=== PATIENT | female | born 1965 | race Caucasian/White ===

== ENCOUNTER 2022-07-23 18:06 | Emergency (ER) | payer BC ==
--- NOTE | 2022-07-23 19:39 | XR ---
EXAMINATION TYPE: XR KUB DATE OF EXAM: 07/23/2022 COMPARISON: NONE HISTORY: Abdominal pain TECHNIQUE: 2 views upright FINDINGS: There is no sign of intestinal obstruction or pneumoperitoneum. Fecal pattern is normal. No evidence of a mass. Lung bases are clear. IMPRESSION: Nonacute abdomen.
[2022-07-23 19:47] LABS: Basophils % (A) 0 %; Eosinophils # (A) 0.1 k/uL (0-0.7); Eosinophils % (A) 1 %; HCT 42.1 % (34.0-46.0); HGB 13.8 gm/dL (11.4-16.0); Lymphocytes # (A) 1.3 k/uL (1.0-4.8); Lymphocytes % (A) 12 %; MCH 30.4 pg (25.0-35.0); MCHC 32.8 g/dL (31.0-37.0); MCV 92.6 fL (80.0-100.0); Mean Platelet Volume 8.5; Monocytes # (A) 0.4 k/uL (0-1.0); Monocytes % (A) 4 %; Neutrophils % (A) 82 %; Platelet Count 296 k/uL (150-450); RBC 4.54 m/uL (3.80-5.40); RDW 12.5 % (11.5-15.5)
[2022-07-23 19:51] LABS: ALT 19 U/L (4-34); AST 23 U/L (14-36); African American GFR (CKD) >90 (>60 ml/min/1.73 sqM); Albumin 4.5 g/dL (3.5-5.0); Alkaline Phosphatase 89 U/L (38-126); Amylase 52 U/L (30-110); Anion Gap 8 mmol/L; Blood Urea Nitrogen 20 mg/dL (7-17); Calcium 9.3 mg/dL (8.4-10.2); Carbon Dioxide 28 mmol/L (22-30); Chloride 102 mmol/L (98-107); Glucose 101 mg/dL (74-99); Lipase 44 U/L (23-300); Non-African American GFR(CKD) >90 (>60 ml/min/1.73 sqM); Potassium 4.4 mmol/L (3.5-5.1); Sodium 138 mmol/L (137-145); Total Bilirubin 0.9 mg/dL (0.2-1.3); Total Protein 7.4 g/dL (6.3-8.2)
[2022-07-23 21:32] VITALS: TEMP 98.3
[2022-07-23] MEDS ORDERED: KETOROLAC 15 MG/ML 1 ML VIAL IVP STA (21:33)
--- NOTE | 2022-07-23 22:00 | ED ---
Abdominal Pain HPI - General Chief Complaint: Abdominal Pain Stated Complaint: Abd Pain Time Seen by Provider: 07/23/22 21:24 Source: patient Mode of arrival: ambulatory Limitations: no limitations - History of Present Illness Initial Comments: Patient's 57-year-old woman who presents to evaluation of upper abdominal pain that is been going on for hours now. Patient had eaten fried foods before the pain came on last night. She had some associated nausea. MD Complaint: abdominal pain -: hour(s) Location: LUQ, RUQ, epigastric Radiation: back Migration to: no migration Severity: severe Quality: aching Consistency: constant Improves With: nothing Worsens With: nothing Associated Symptoms: nausea - Related Data Allergies Allergy/AdvReac Type Severity Reaction Status Date / Time No Known Allergies Allergy Verified 07/23/22 18:44 Review of Systems ROS Statement: Those systems with pertinent positive or pertinent negative responses have been documented in the HPI. ROS Other: All systems not noted in ROS Statement are negative. Constitutional: Denies: fever, chills Respiratory: Denies: cough, dyspnea Cardiovascular: Denies: chest pain, palpitations, edema Gastrointestinal: Reports: abdominal pain, nausea. Denies: vomiting, diarrhea, melena, hematochezia Genitourinary: Denies: dysuria, frequency, hematuria Musculoskeletal: Denies: back pain Skin: Denies: rash Neurological: Denies: headache, weakness Past Medical History Past Medical History: Hyperlipidemia, Hypertension, Osteoarthritis (OA) Additional Past Medical History / Comment(s): PSEUDO TUMOR History of Any Multi-Drug Resistant Organisms: None Reported Past Surgical History: Section, Hernia Repair Additional Past Surgical History / Comment(s): SINUS SURGERY Past Psychological History: No Psychological Hx Reported Smoking Status: Never smoker Past Alcohol Use History: None Reported Past Drug Use History: None Reported General Exam Limitations: no limitations General appearance: alert, in no apparent distress Head exam: Present: atraumatic, normocephalic Eye exam: Present: normal appearance. Absent: scleral icterus, conjunctival injection ENT exam: Present: normal oropharynx Neck exam: Present: normal inspection, full ROM Respiratory exam: Present: normal lung sounds bilaterally. Absent: respiratory distress, wheezes, rales, rhonchi, stridor, accessory muscle use Cardiovascular Exam: Present: regular rate, normal rhythm, normal heart sounds. Absent: systolic murmur, diastolic murmur, rubs, gallop GI/Abdominal exam: Present: soft, tenderness. Absent: distended, guarding, rebound, rigid, mass Extremities exam: Present: normal inspection, normal capillary refill. Absent: pedal edema, calf tenderness Back exam: Present: normal inspection. Absent: CVA tenderness (R), CVA tenderness (L) Neurological exam: Present: alert Skin exam: Present: warm, dry, intact, normal color. Absent: rash Course Vital Signs 07/23/22 07/23/22 07/23/22 18:39 21:32 22:55 Temperature 983 F H 98.3 F Pulse Rate 83 80 Respiratory 16 18 Rate Blood Pressure 203/96 170/80 O2 Sat by Pulse 98 96 Oximetry Medical Decision Making - Medical Decision Making Patient's 57-year-old woman presenting with characteristic biliary colic pains. The ultrasound does reveal gallstones. The patient's symptoms have improved. We discussed appropriate further care and follow-up as well as dietary change. We discussed return parameters - Lab Data Result diagrams: 07/23/22 19:35 07/23/22 19:35 Lab Results 07/23/22 07/23/22 07/23/22 Range/Units 19:35 19:35 22:00 WBC 11.0 H (3.8-10.6) k/uL RBC 4.54 (3.80-5.40) m/uL Hgb 13.8 (11.4-16.0) gm/dL Hct 42.1 (34.0-46.0) % MCV 92.6 (80.0-100.0) fL MCH 30.4 (25.0-35.0) pg MCHC 32.8 (31.0-37.0) g/dL RDW 12.5 (11.5-15.5) % Plt Count 296 (150-450) k/uL MPV 8.5 Neutrophils % 82 % Lymphocytes % 12 % Monocytes % 4 % Eosinophils % 1 % Basophils % 0 % Neutrophils # 9.0 H (1.3-7.7) k/uL Lymphocytes # 1.3 (1.0-4.8) k/uL Monocytes # 0.4 (0-1.0) k/uL Eosinophils # 0.1 (0-0.7) k/uL Basophils # 0.0 (0-0.2) k/uL Sodium 138 (137-145) mmol/L Potassium 4.4 (3.5-5.1) mmol/L Chloride 102 (98-107) mmol/L Carbon Dioxide 28 (22-30) mmol/L Anion Gap 8 mmol/L BUN 20 H (7-17) mg/dL Creatinine 0.70 (0.52-1.04) mg/dL Est GFR (CKD-EPI)AfAm >90 (>60 ml/min/1.73 sqM) Est GFR (CKD-EPI)NonAf >90 (>60 ml/min/1.73 sqM) Glucose 101 H (74-99) mg/dL Calcium 9.3 (8.4-10.2) mg/dL Total Bilirubin 0.9 (0.2-1.3) mg/dL AST 23 (14-36) U/L ALT 19 (4-34) U/L Alkaline Phosphatase 89 (38-126) U/L Total Protein 7.4 (6.3-8.2) g/dL Albumin 4.5 (3.5-5.0) g/dL Amylase 52 (30-110) U/L Lipase 44 (23-300) U/L Urine Color Light Yellow Urine Appearance Cloudy H (Clear) Urine pH 5.5 (5.0-8.0) Ur Specific [place] 1.015 (1.001-1.035) Urine Protein Negative (Negative) Urine Glucose (UA) Negative (Negative) Urine Ketones 1+ H (Negative) Urine Blood Negative (Negative) Urine Nitrite Negative (Negative) Urine Bilirubin Negative (Negative) Urine Urobilinogen <2.0 (<2.0) mg/dL Ur Leukocyte Esterase Negative (Negative) Urine RBC <1 (0-5) /hpf Urine WBC 1 (0-5) /hpf Ur Squamous Epith Cells 2 (0-4) /hpf Urine Bacteria Few H (None) /hpf Urine Mucus Rare H (None) /hpf - EKG Data -: EKG Interpreted by Me EKG shows normal: sinus rhythm, axis (Normal), intervals (Normal) Rate: normal (Rate 68 bpm) Disposition Clinical Impression: Biliary colic Disposition: HOME SELF-CARE Condition: Good Instructions (If sedation given, give patient instructions): Biliary Colic (ED) Is patient prescribed a controlled substance at d/c from ED?: No Referrals: None,Stated [Primary Care Provider] - 1-2 days Jaime Galeas MD [STAFF PHYSICIAN] - 1-2 days
[2022-07-23 22:56] VITALS: BP 170/80; PULSE 80; RESP 18
--- NOTE | 2022-07-23 23:08 | US ---
EXAMINATION TYPE: US abdomen limited DATE OF EXAM: 07/23/2022 COMPARISON: NONE CLINICAL HISTORY: attention RUQ. RUQ pain x 1 day TECHNIQUE: Multiple sonographic images of the right upper quadrant are obtained. FINDINGS: EXAM MEASUREMENTS: Liver Length: 20.6 cm Gallbladder Wall: 1.0 cm CBD: 0.54 cm Right Kidney: 10.5 x 5.0 x 5.2 cm SERVOMECHANISM DESIGNER NOTES: Pancreas: wnl Liver: Difficult to penetrate Gallbladder: 2 large gallstones visualized, thick gb wall Evidence for sonographic Davis's sign: No CBD: wnl Right Kidney: wnl IMPRESSION: There are large gallstones. No dilated ducts. No discrete liver mass.
[2022-07-23 23:15] LABS: Appearance,Urine Cloudy (Clear); Bacteria,Urine Few /hpf; Bilirubin,Urine Negative (Negative); Blood,Urine Negative (Negative); Color,Urine Light Yellow; Glucose,Urine (UA) Negative (Negative); Ketones,Urine 1+ (Negative); Leukocyte Esterase,Urine Negative (Negative); Mucus,Urine Rare /hpf; Nitrite,Urine Negative (Negative); PH, Urine 5.5 (5.0-8.0); Protein,Urine Negative (Negative); RBC,Urine <1 /hpf (0-5); Specific Gravity,Urine 1.015 (1.001-1.035); Squamous Epithelial Cell,Urine 2 /hpf (0-4); Urobilinogen,Urine <2.0 mg/dL (<2.0); WBC,Urine 1 /hpf (0-5)
== END 2022-07-23 23:45 | disposition home or self-care (01) ==
LOC: EC 18:06
DX: K83.5 Biliary cyst (principal); I10 Essential (primary) hypertension
CPT/HCPCS: 36415; 93005; 80053; 82150; 83690; 85025; 81001; 74018; 76705; 99285; 96374; J1885

== ENCOUNTER 2022-08-09 07:21 | Day surgery (SDC) | payer BC ==
[~2022-08-09 07:21] MED LIST: ACETAMINOPHEN TAB 500 MG TAB PO PRN; DEXAMETHASONE SOD PHOSPHATE 4 MG/ML 1 ML VIAL IV ONE; HEPARIN SODIUM,PORCINE/PF 5,000 UNIT/0.5 ML SYRINGE SQ PRN; LIDOCAINE 1% (10MG/ML) FOR IV START INTRADERMA PRN; MIDAZOLAM 2 MG/2 ML VIAL IV PRN; ONDANSETRON 4 MG/2 ML VIAL IVP ONE; ceFAZolin 3 GM in SODIUM CHLORIDE 0.9% 100 ML IVPB PRN
[2022-08-09] MEDS: LACTATED RINGERS 1,000 ML IV SCH (08:12)
[2022-08-09] MEDS ORDERED: MIDAZOLAM 2 MG/2 ML VIAL IV ONE (08:13)
[2022-08-09] MEDS ORDERED: KETOROLAC 15 MG/ML 1 ML VIAL ONE (08:53)
[2022-08-09] MEDS ORDERED: fentaNYL (PF) 50 MCG/ML 2 ML AMP ONE (08:53)
[2022-08-09] MEDS ORDERED: MIDAZOLAM 2 MG/2 ML VIAL ONE (08:53)
[2022-08-09] MEDS ORDERED: SUCCINYLCHOLINE CHLORIDE 200 MG/10 ML VIAL IV ONE (08:53)
[2022-08-09] MEDS ORDERED: LIDOCAINE 2% INJ 20 MG/ML (2 ML VIAL) ONE (08:53)
[2022-08-09] MEDS ORDERED: PROPOFOL 10 MG/ML 20 ML VIAL IV ONE (08:53)
[2022-08-09] MEDS ORDERED: ROCURONIUM 10 MG/ML (5 ML VIAL) IV ONE (08:53)
[2022-08-09] MEDS ORDERED: BUPIVACAIN-EPI 0.25%-1:200,000 30 ML VIAL SQ ONE (09:14)
--- NOTE | 2022-08-09 10:00 | P.OP ---
Date of Procedure: 08/09/22 Preoperative Diagnosis: Cholecystitis Postoperative Diagnosis: Cholecystitis Procedure(s) Performed: Laparoscopic cholecystectomy Anesthesia: AUGUSTO Surgeon: Jaime Galeas Estimated Blood Loss (ml): 10 Pathology: other (Gallbladder) Condition: stable Disposition: PACU Operative Findings: Grossly enlarged and very chronically inflamed with very thickened gallbladder wall. Description of Procedure: The patient was placed on the operating table. The patient received a general endotracheal tube anesthesia. The patients abdomen was prepped and draped in the usual sterile fashion. Through an infraumbilical stab incision, the fascia of the anterior abdominal wall was grasped with a pair of Kochers and then the Veress needle was placed in the peritoneal cavity. Position of the Veress needle was confirmed with positive drop test. The abdomen was then insufflated. After adequate insufflation, the 10 mm trocar was placed in the peritoneal cavity. Following this the laparoscope was placed in the peritoneal cavity. The patient was placed in the head-up, right side up position and then a 5 mm trocar was placed in the right lateral and right subcostal position under direct visualization. A 8 mm trocar was placed in the epiga stric position. The gallbladder was grasped in the fundus and infundibulum. Traction on the gallbladder was placed in the lateral and the cephalad positions. The triangle of Calot was visualized.. The cystic duct was bluntly dissected until the union of the cystic duct and common bile duct was seen. A critical view of safety was achieved. The cystic duct was then divided and sealed with the Harmonic scissors. A PDS Endoloop was then placed throughout the cystic duct stump. The cystic artery divided and sealed with the Harmonic scissors. The gallbladder was then removed from the liver bed using Harmonic scissors. The gallbladder was then extracted through the epigastric port site. Operative field was checked for any bleeding spots and Harmonic scissors was used to coagulate the liver bed. The abdomen was irrigated. The trocars were removed. The skin was closed using interrupted 3-0 Vicryl suture. Dermabond dressing were applied. The patient tolerated the procedure well.
[2022-08-09] MEDS ORDERED: LACTATED RINGERS 1,000 ML IV ONE ×2 (10:01→10:17)
[2022-08-09] MEDS ORDERED: NALOXONE 0.4 MG/ML 1 ML VIAL IV PRN (10:01)
[2022-08-09] MEDS ORDERED: HYDROmorphone 0.5 MG/0.5 ML SYRINGE IVP PRN (10:01)
[2022-08-09] MEDS ORDERED: ONDANSETRON 4 MG/2 ML VIAL IVP PRN (10:01)
[2022-08-09] MEDS ORDERED: HYDROmorphone 1 MG/ML 1 ML SYRINGE IVP PRN (10:01)
[2022-08-09] MEDS ORDERED: ACETAMINOPHEN TAB 325 MG TAB PO PRN (10:01)
[2022-08-09] MEDS: HYDROmorphone 0.5 MG/0.5 ML SYRINGE IVP PRN ×3 (10:15→11:20)
[2022-08-09] MEDS ORDERED: hydrALAZINE HCL 20 MG/ML 1 ML VIAL IVP ONE ×2 (10:57→11:31)
[2022-08-09] MEDS: HYDROcodone/APAP 5-325MG 1 EACH TAB PO PRN (15:44)
[2022-08-09] MEDS: lisinopriL 20 MG TAB PO SCH (22:45)
[2022-08-10] MEDS: HYDROcodone/APAP 5-325MG 1 EACH TAB PO PRN ×2 (06:46→13:41)
[2022-08-10 08:21] VITALS: BP 174/85; PULSE 82; RESP 16; TEMP 98.3
[2022-08-10] MEDS ORDERED: ENOXAPARIN 40 MG/0.4 ML SYRINGE SQ SCH (09:00)
[2022-08-10] MEDS: LACTATED RINGERS 1,000 ML IV SCH (11:00)
[2022-08-10] MEDS: lisinopriL 20 MG TAB PO SCH (11:01)
[2022-08-10] MEDS ORDERED: amLODIPine 5 MG TAB PO SCH (12:30)
--- NOTE | 2022-08-10 12:32 | P.DS ---
Providers Date of admission: 08/09/2022 Expected date of discharge: 08/10/22 Attending physician: Jaime Galeas Consults: 08/09/22 10:01 Consult Physician Routine Consulting Provider: Naman Moralez Consult Reason/Comments: Medical management Do you want consulting provider notified?: Yes Primary care physician: Stated None Hospital Course: This is a 57-year-old female who underwent laparoscopic-assisted for subacute cholecystitis. Patient is mildly obese. She was observed overnight in the hospital. Patient did well postoperatively. Procedures: Laparoscopic cholecystectomy Patient Condition at Discharge: Good Plan - Discharge Summary Discharge Rx Participant: No New Discharge Prescriptions: New lisinopriL [Zestril] 20 mg PO DAILY tab amLODIPine [Norvasc] 5 mg PO DAILY #30 tab No Action Enalapril [Vasotec] 20 mg PO HS Discharge Medication List Enalapril [Vasotec] 20 mg PO HS 08/06/22 [History] amLODIPine [Norvasc] 5 mg PO DAILY #30 tab 08/10/22 [Rx] lisinopriL [Zestril] 20 mg PO DAILY tab 08/10/22 [Rx] Follow up Appointment(s)/Referral(s): Rowena Valencia MD [STAFF PHYSICIAN] - 3 Days Jaime Galeas MD [STAFF PHYSICIAN] - 08/13/22 10:30 am
--- NOTE | 2022-08-10 19:00 | CONS ---
CONSULTATION REASON FOR CONSULTATION: Advice regarding hypertension and multiple medical issues, requested by Surgery. HISTORY OF PRESENT ILLNESS: This is a 57-year-old woman with a past medical history of multiple medical issues including hypertension, was admitted after laparoscopic cholecystectomy for cholecystitis. The patient tolerated the procedure well. Blood pressure is elevated, currently elevated at 174/85. The patient is looking for a regular doctor according to her. There is no history of any fever, rigors, or chills. PAST MEDICAL HISTORY: Reviewed, include hypertension, hyperlipidemia, DJD, breast history, rest of the chart is reviewed. MEDICATIONS: Enalapril. ALLERGIES: None. FAMILY HISTORY: History of DVT. SOCIAL HISTORY: History of smoking, alcohol intake. REVIEW OF SYSTEMS: A 14-point review is negative except as mentioned earlier. PHYSICAL EXAMINATION: VITAL SIGNS: Pulse 82, blood pressure 130/72, respirations 16. HEENT: Conjunctivae are normal. NECK: No jugular venous distention. CARDIOVASCULAR: S1, S2 muffled. RESPIRATIONS: Diminished at the bases. No rhonchi, no crackles. ABDOMEN: Soft status post surgery. NERVOUS SYSTEM: No focal deficit. SKIN: No ulcer, rash, bleeding. JOINTS: No active deforming arthropathy. LABORATORY DATA: Not available. ASSESSMENT: 1. Status post laparoscopic cholecystectomy. 2. Hypertension. 3. Hyperlipidemia. 4. History of degenerative joint disease. 5. Multiple medical issues. RECOMMENDATIONS: This 57-year-old woman presented with multiple complex medical issues, we will monitor the patient closely. I would recommend continue the Naprelan and add Norvasc to the current regimen. Otherwise, follow with primary physician. Follow with surgery. Incentive spirometry. Rest of the recommendations per surgery. Further recommendations to follow. MMODL / IJN: [id number] /
== END 2022-08-10 13:50 | disposition home or self-care (01) ==
LOC: OR 07:21 → 4SSUR 10:07 → OR 08-10 13:50
PROVIDERS: ATTEND Surgery
DX: K80.10 Calculus of gallbladder with chronic cholecystitis without obstruction (principal); K82.8 Other specified diseases of gallbladder; I10 Essential (primary) hypertension; E78.5 Hyperlipidemia, unspecified; M19.90 Unspecified osteoarthritis, unspecified site; Z98.890 Other specified postprocedural states; E66.01 Morbid (severe) obesity due to excess calories; Z68.44 Body mass index [BMI] 60.0-69.9, adult; Z79.1 Long term (current) use of non-steroidal anti-inflammatories (NSAID); Z79.899 Other long term (current) drug therapy
CPT/HCPCS: 47562; J2250; J0330; J0360; J1100; J0690; J2405; J1650; J3010; J1170 ×2; J1885; J2704; J1644; J2001; 88304